=== PATIENT | female | born 1975 | race Native Hawaiian/Other Pacific Islander ===

== ENCOUNTER 2016-04-08 10:58 | Emergency (ER) | payer OTHER ==
--- NOTE | 2016-04-08 11:08 | ED Physician Documentation ---
General Adult - HISTORIAN Historian: patient - HPI Chief Complaint: General Adult Onset: days ago (3 days) Timing: still present Severity: moderate Further Comments: yes (# day history of mild nausesea, sore thorat, cough occasional productive of white cloudy phlegm, no blood noed. Has been having some body aches.) - ROS CONST: fever (unknown), chills GI/: denies: abdominal pain NEURO/PSYCH: headache - PAST HX Past History: other (HTN) Other History: none Allergies/Adverse Reactions: Allergies Allergy/AdvReac Type Severity Reaction Status Date / Time No Known Allergies Allergy Verified 04/08/16 11:12 Home Medications: Ambulatory Orders Medication Instructions Recorded Lisinopril [Prinivil] 20 mg PO D #15 tablet 04/08/16 - SOCIAL HX Smoking History: less than 1 pack/day (1/2 ppd) Alcohol Use: rarely Drug Use: marijuana (occasional) - FAMILY HX Family History: No - VITAL SIGNS Vital Signs: Vital Signs Temp Pulse Resp BP Pulse Ox 169/92 09/23/15 03:07 - REVIEWED ASSESSMENTS Nursing Assessment Reviewed: Yes Vitals Reviewed: Yes General Adult Physical Exam - PHYSICAL EXAM GENERAL APPEARANCE: mild distress EENT: ENT inspection normal, pharyngeal erythema (mild) NECK: normal inspection, thyroid normal, supple. No: lymphadenopathy RESPIRATORY: no resp distress, chest non-tender, breath sounds normal CVS: reg rate & rhythm, heart sounds normal, equal pulses, no murmur, no gallop SKIN: warm/dry, normal color EXTREMITIES: non-tender NEURO: mood/affect nml, cognition normal Discharge Clincal Impression: Essential hypertension, Viral syndrome Prescriptions: Lisinopril [Prinivil] 20 mg PO D #15 tablet Referrals: Primary Doctor,No [Primary Care Provider] - 2 Days Additional Instructions: Start taking your blood pressure medication! Drink a lot of fluids. Take some Tylenol or Ibuprofen as needed to help with the aches and pain. If you symptoms do not get better then you need to follow-up with your primary care provider. I IT IS IMPORTANT FOR YOU TO GET YOUR BLOOD PRESSURE UNDER CONTROL TO PREVENT OTHER MEDICAL PROBLEMS FROM DEVELOPING. Home Medications: Ambulatory Orders Lisinopril [Prinivil] 20 mg PO D #15 tablet 04/08/16 Condition: Stable Disposition: HOME, SELF-CARE Decision to Admit: NO Date of Decison to Admit: 04/08/16 Decision Time: 12:40
[2016-04-08] MEDS ORDERED: LISINOPRIL 20 MG TABLET PO ONE (11:43)
[2016-04-08 12:16] LABS: BASOPHILS % 0.7 (0.0-1.5); EOSINOPHILS % 3.1 % (0.0-6.8); LYMPHOCYTES # 1.6 # k/uL (0.6-4.0); MEAN CORPUSCULAR HEMOGLOBIN 26.6 pg (28.0-34.0); MONOCYTES # 0.6 # k/uL (0.0-0.9); NEUTROPHILS # 5.2 # k/uL (1.4-7.7)
[2016-04-08 12:34] LABS: eGFR (African) > 60; eGFR (Non-African) > 60
[2016-04-08 13:03] VITALS: BP 168/99
== END 2016-04-08 12:55 | disposition home or self-care (01) ==
LOC: ED 10:58
DX: J06.9 Acute upper respiratory infection, unspecified (principal); I10 Essential (primary) hypertension; F17.210 Nicotine dependence, cigarettes, uncomplicated
CPT/HCPCS: 80053; 85025; 87070; 87400; 87880; 99283

== ENCOUNTER 2016-08-16 16:41 | Emergency (ER) | payer OTHER ==
--- NOTE | 2016-08-16 19:17 | ED Physician Documentation ---
Chest Pain - HISTORIAN Historian: patient - HPI Stated Complaint: Right Rib Pain Chief Complaint: Chest Pain Additional Information: onset approx 1wk ago rt lower ant and lat rt rib pain. hurts w pressure or deep breath. exab sig cough recently Onset: days ago (7) Timing: gradual onset, still present Duration: waxing, waning Last known Well Date: 08/13/16 Last Known Well Time: 17:00 Severity: moderate Quality: pressure, dull, aching, sharp Chest Pain Radiation: no radiation Chest Pain Signs/Symptoms: denies: nausea, vomiting, diaphoresis, cool extremities Worsened By: deep breaths, change in position - ROS CONST: none MS/LYMPH: none EYES/ENT: none SKIN/ENDO: none NEURO/PSYCH: none - PAST HX CO risk factors: hypertension Neuro deficit: none GI disease: none Lung disease: none Surgeries/Procedures: none Allergies/Adverse Reactions: Allergies Allergy/AdvReac Type Severity Reaction Status Date / Time No Known Allergies Allergy Verified 08/16/16 16:49 Home Medications: Ambulatory Orders Medication Instructions Recorded Lisinopril [Prinivil] 20 mg PO D #15 tablet 04/08/16 Azithromycin 500 mg PO D #5 tablet 08/16/16 - SOCIAL HX Smoking History: non-smoker Alcohol Use: none Drug Use: none - FAMILY HX Family HX: none - VITAL SIGNS Vital Signs: Vital Signs Temp Pulse Resp BP Pulse Ox 97 F L 72 18 197/95 99 08/16/16 16:45 08/16/16 16:45 08/16/16 16:45 08/16/16 16:45 08/16/16 16:45 - REVIEWED ASSESSMENTS Nursing Assessment Reviewed: Yes Vitals Reviewed: Yes ED Results Lab/Radiology - Radiology Radiology Impressions: cxr calvin pneumonia rll - Orders Orders: ED Orders Category Date Time Status CHEST 2 VIEW [CHEST P.A.&LAT 2 VIEWS] [RAD] Stat Exams 08/16/16 Ordered Chest Pain Physical Exam - EXAM General Appearance: mild distress EENT: eye inspection normal Neck: nml inspection, no carotid bruit. No: lymphadenopathy Respiratory: no resp. distress, nml breath sounds, wheezes (very slight area c/o ). No: chest non-tender, decreased air movement CVS: reg. rate & rhythm, no murmur Abdomen: soft, non-tender Skin: warm/dry, normal color. No: cyanosis, diaphoresis, jaundice Extremities: non-tender, normal range of motion Neuro: oriented X3, motor nml, sensation nml, mood/affect nml Discharge Clincal Impression: ACUTE PNEUMONIA Prescriptions: Azithromycin 500 mg PO D #5 tablet Referrals: Primary Doctor,No [Primary Care Provider] - 2 Days Home Medications: Ambulatory Orders Lisinopril [Prinivil] 20 mg PO D #15 tablet 04/08/16 Azithromycin 500 mg PO D #5 tablet 08/16/16 Comments: ljpack Condition: Good Disposition: 01 HOME, SELF-CARE Decision to Admit: NO Decision Time: 19:16
[2016-08-16 19:35] VITALS: BP 135/68
--- NOTE | 2016-08-16 21:08 | Diagnostic Imaging Report ---
RONNIE ZEPEDA [facility] [address] [facility] [address]. [address] Report Submission Date: August 16, 2016 5:42:48 PM CDT Patient Study Name: DIAMOND MARTINEZ Date: August 16, 2016 5:17:36 PM CDT Modality Type: CR Gender: F Description: CHEST : 79 Institution: [facility] Physician: RONNIE ZEPEDA Chest 2 views Date of Exam: August 16, 2016. History: CXR, RT SIDED CHEST PAIN FOR ABOUT A WEEK (Hx) Findings: No comparison studies are provided. There is a slight right perihilar and right lower lobe infiltrate. The cardiac and mediastinal silhouettes are normal. The trachea is midline and the aortic arch contour is normal. The pulmonary vascularity is within normal limits. Impression: Right perihilar and right lower lobe infiltrate. Recommend followup imaging to ensure resolution. Electronically signed on August 16, 2016 5:42:48 PM CDT by: Tali ECHEVARRIA
== END 2016-08-16 19:28 | disposition home or self-care (01) ==
LOC: ED 16:41
DX: J18.9 Pneumonia, unspecified organism (principal)
CPT/HCPCS: 71020; 99283